=== PATIENT | female | born 1995 | race American Indian/Alaskan Native ===

== ENCOUNTER 2017-02-05 23:15 | Emergency (ER) | payer SELFPAY ==
[2017-02-06 00:18] VITALS: BP 129/68
== END 2017-02-06 00:15 | disposition left against medical advice (07) ==
LOC: ED 23:15
DX: R10.2 Pelvic and perineal pain (principal); R30.9 Painful micturition, unspecified; Z53.21 Procedure and treatment not carried out due to patient leaving prior to being seen by health care provider

== ENCOUNTER 2020-07-19 20:42 | Emergency (ER) | payer SELFPAY ==
[2020-07-19 21:01] VITALS: BP 104/43
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
== END 2020-07-20 01:55 | disposition home or self-care (01) ==
LOC: ED 20:42
DX: S39.012A Strain of muscle, fascia and tendon of lower back, initial encounter (principal); S46.912A Strain of unspecified muscle, fascia and tendon at shoulder and upper arm level, left arm, initial encounter; E66.01 Morbid (severe) obesity due to excess calories; Z79.899 Other long term (current) drug therapy; Z91.013 Allergy to seafood; Z88.8 Allergy status to other drugs, medicaments and biological substances; X58.XXXA Exposure to other specified factors, initial encounter; Y93.89 Activity, other specified; Y92.89 Other specified places as the place of occurrence of the external cause; Y99.8 Other external cause status
CPT/HCPCS: 99283